=== PATIENT | male | born 1985 | race Caucasian/White ===

== ENCOUNTER 2019-04-05 14:14 | Emergency (ER) | payer SELFPAY ==
[~2019-04-05] VITALS: Ht 157.5 cm; Wt 64.0 kg
[2019-04-05] MEDS ORDERED: KETOROLAC 30MG/ML VIAL IV STA (17:08)
[2019-04-05] MEDS ORDERED: ONDANSETRON HCL 4MG/2ML INJ IV STA ×2 (17:08→19:12)
[2019-04-05 17:33] LABS: BASOPHILS % 0.4 % (0.0-2.0); EOSINOPHILS % 0.4 % (0.0-5.0); HEMATOCRIT. 48.5 % (42.0-52.0); HEMOGLOBIN. 16.7 g/dL (14.0-18.0); LYMPHOCYTES % 11.1 % (20.0-50.0); MEAN CORPUSCULAR HEMOGLOBIN 29.7 pg (28.0-32.0); MEAN CORPUSCULAR VOLUME 86.2 fL (80.0-94.0); MEAN PLATELET VOLUME 8.2 fl (7.4-10.4); MONOCYTES % 5.5 % (2.0-8.0); NEUTROPHILS % 82.6 % (40.0-76.0); PLATELET 339 x1000/uL (130-400); RED BLOOD CELL COUNT 5.62 mill/uL (4.7-6.1); RED CELL DISTRIBUTION WIDTH 13.3 % (11.6-14.6)
[2019-04-05 17:39] LABS: CHLORIDE 103 mEq/L (98-107)
[2019-04-05 18:47] LABS: CLARITY URINE CLEAR (CLEAR); COLOR URINE YELLOW (YELLOW); KETONES URINE NEGATIVE (NEGATIVE); LEUKOCYTE ESTERASE URINE NEGATIVE (NEGATIVE); NITRITE URINE NEGATIVE (NEGATIVE); OCCULT BLOOD URINE 3+ (NEGATIVE); PH URINE 6.5 (4.5-8.0); PROTEIN URINE NEGATIVE (NEGATIVE); SPECIFIC GRAVITY URINE 1.006 (1.005-1.030); UROBILINOGEN URINE 0.2 E.U./dL (0.2-1.0)
[2019-04-05] MEDS ORDERED: SODIUM CHLORIDE 0.9% 1,000 ML IV ONE (19:12)
[2019-04-05] MEDS ORDERED: MORPHINE SULFATE 4 MG/ML CPJ (NOT FOR IM USE) IV STA (19:12)
[2019-04-05 19:30] VITALS: BP 107/65
== END 2019-04-05 20:11 | disposition home or self-care (01) ==
LOC: ER 14:14
DX: N23 Unspecified renal colic (principal); N13.30 Unspecified hydronephrosis
CPT/HCPCS: 36415; 76700; 80053; 81003; 83690; 85025; 96374; 96375; 96376; 99284; J1885; J2270; J2405; J7030

== ENCOUNTER 2022-02-08 16:27 | Emergency (ER) | payer MEDICAID ==
[~2022-02-08] VITALS: Ht 170.2 cm; Wt 68.0 kg
[2022-02-08] MEDS ORDERED: IBUP-2028 MT (17:57)
[2022-02-08 18:00] VITALS: BP 122/75
[2022-02-08] MEDS ORDERED: KETOROLAC 60MG/2ML VIAL IM ONE (18:00)
== END 2022-02-08 20:13 | disposition home or self-care (01) ==
LOC: ER 16:27
DX: M54.50 Low back pain, unspecified (principal)
CPT/HCPCS: 72070; 72100; 96372; 99284; J1885

== ENCOUNTER 2022-03-06 14:20 | Emergency (ER) | payer MEDICAID ==
[~2022-03-06] VITALS: Ht 154.9 cm; Wt 69.0 kg
[~2022-03-06 14:20] MED LIST: IBUP-2028 MT
[2022-03-06] MEDS ORDERED: KETOROLAC 30MG/ML VIAL IV STA (16:21)
[2022-03-06] MEDS ORDERED: SODIUM CHLORIDE 0.9% 1,000 ML IV ONE (16:30)
[2022-03-06 17:03] VITALS: BP 119/75
[2022-03-06 18:26] LABS: BASOPHILS % 0.5 % (0.0-2.0); EOSINOPHILS % 2.7 % (0.0-5.0); HEMATOCRIT. 44.5 % (42.0-52.0); HEMOGLOBIN. 14.9 g/dL (14.0-18.0); LYMPHOCYTES % 21.5 % (20.0-50.0); MEAN CORPUSCULAR HEMOGLOBIN 28.8 pg (28.0-32.0); MEAN CORPUSCULAR VOLUME 85.6 fL (80.0-94.0); MEAN PLATELET VOLUME 8.6 fl (7.4-10.4); MONOCYTES % 13.6 % (2.0-8.0); NEUTROPHILS % 61.7 % (40.0-76.0); PLATELET 302 x1000/uL (130-400); RED CELL DISTRIBUTION WIDTH 13.9 % (11.6-14.6)
[2022-03-06 18:28] LABS: CLARITY URINE CLEAR (CLEAR); COLOR URINE YELLOW (YELLOW); KETONES URINE NEGATIVE (NEGATIVE); LEUKOCYTE ESTERASE URINE NEGATIVE (NEGATIVE); NITRITE URINE NEGATIVE (NEGATIVE); OCCULT BLOOD URINE NEGATIVE (NEGATIVE); PH URINE 5.5 (4.5-8.0); PROTEIN URINE NEGATIVE (NEGATIVE); SPECIFIC GRAVITY URINE 1.021 (1.005-1.030); UROBILINOGEN URINE 0.2 E.U./dL (0.2-1.0)
[2022-03-06 18:28] LABS: CHLORIDE 105 mEq/L (98-107)
[2022-03-06 18:34] LABS: ETHANOL BLOOD < 10 mg/dL
[2022-03-06 18:45] LABS: *AMPHETAMINES SCREEN URINE PRESUMTIVE POSITIVE (NEGATIVE); *BARBITURATES SCREEN URINE NEGATIVE (NEGATIVE); *BENZODIAZEPINES SCREEN URINE NEGATIVE (NEGATIVE); *COCAINE SCREEN URINE NEGATIVE (NEGATIVE); CANNABINOID URINE SCREEN NEGATIVE (NEGATIVE); METHADONE URINE SCREEN NEGATIVE (NEGATIVE); OPIATES URINE SCREEN NEGATIVE (NEGATIVE); PHENCYCLIDINE URINE SCREEN NEGATIVE (NEGATIVE)
[2022-03-06] MEDS ORDERED: IBUP-2029 MT (19:58)
[2022-03-06] MEDS ORDERED: ONDA4TAB50 MT (19:58)
== END 2022-03-06 21:08 | disposition home or self-care (01) ==
LOC: ER 14:20
DX: R10.11 Right upper quadrant pain (principal); M54.89 Other dorsalgia; R19.7 Diarrhea, unspecified
CPT/HCPCS: 36415; 74176; 76705; 80053; 80305; 80320; 81003; 83690; 85025; 96361; 96374; 99284; J1885; J7030; G0480

== ENCOUNTER 2023-07-28 10:59 | Emergency (ER) | payer MEDICAID ==
[~2023-07-28] VITALS: Ht 170.2 cm; Wt 79.0 kg
[~2023-07-28 10:59] MED LIST changes: +IBUP-2029 MT; +ONDA4TAB50 MT
[2023-07-28 11:08] VITALS: BP 112/75; PULSE 69; RESP 20; TEMP 98.2; O2SAT 100
[2023-07-28] MEDS ORDERED: OFLO5DRO4 LEFT EAR (13:20)
== END 2023-07-28 13:54 | disposition home or self-care (01) ==
LOC: ER 11:02
DX: H92.02 Otalgia, left ear (principal); H60.92 Unspecified otitis externa, left ear; Z87.19 Personal history of other diseases of the digestive system
CPT/HCPCS: 99283